=== PATIENT | male | born 1970 | race Caucasian/White ===

== ENCOUNTER 2019-07-16 11:38 | Emergency (ER) | payer BC, SELFPAY ==
[2019-07-16 11:39] VITALS: BP 158/87; PULSE 69; RESP 16; TEMP 37.1; O2SAT 98; BMI 25.8
--- NOTE | 2019-07-16 11:48 | CT_ITS ---
STUDY: CT ABDOMEN AND PELVIS WITHOUT CONTRAST REASON FOR EXAM: Male, 48 years old. Bilateral flank pain. RADIATION DOSAGE (If Supplied By Facility): CTDIvol = ( 10.56 ) mGy, DLP = ( 496.69 ) mGycm TECHNIQUE: Transaxial images were obtained from the dome of the diaphragm to the symphysis pubis without oral contrast, and without intravenous contrast. Sagittal and coronal images were reconstructed. Individualized dose optimization techniques were used for this CT. COMPARISON: None. FINDINGS: Lung bases: Minimal scarring. Heart: Unremarkable. Liver: Mild hepatic steatosis. Gallbladder/biliary ducts: Unremarkable. Pancreas: Unremarkable. Spleen: Unremarkable. Adrenal glands: Unremarkable. Kidneys/ureters/bladder: Right renal cyst (axial image 62). Mild bilateral extra renal pelvis. Nondilated ureters. Normal left renal parenchyma. Normal urinary bladder. Prostate: Punctate prostate calcifications. Large bowel/small bowel: Constipation. Appendix: Unremarkable (axial image 106). Gastroesophageal junction/stomach: Unremarkable. Retroperitoneum/lymph nodes: No intra-abdominal free air. No ascites. No pathologically enlarged lymph nodes. Vascular: Vascular calcifications. No aneurysm. Osseous structures: Mild degenerative findings. No acute process. Subcutaneous/soft tissues: Fat-containing hernia. Small left rectus femoris lipoma. No acute process. CT/Abdomen/Pelvis without Cont IMPRESSION: No acute intraabdominal/pelvic findings Constipation Electronically Signed: Elkin Laguna DO at 12:55 EST Tel , Service support ,
[2019-07-16 12:05] LABS: Absolute Lymphocyte Count 3.91 X10^3/uL (0.83-4.51); Absolute Neutrophil Count 6.1 X10^3/uL (2.0-7.7); Basophil# 0.05 X10^3/uL; Basophil% 0.4 % (0-1); Eosinophil# 0.48 X10^3/uL; Eosinophils% 4.2 % (0-5); Hematocrit 49.2 % (40-54); Hemoglobin 16.5 g/dL (13.0-16.5); Lymphocyte # 3.91 X10^3/ul (4.0); Lymphocyte % 34.5 % (19-41); Mean Corp Hgb Conc 33.5 g/dL (32-36); Mean Corpuscular Hgb 29.5 pg (27.0-32.0); Mean Platelet Vol. 10.7 fl (6.2-12.0); Monocyte# 0.81 X10^3/uL; Monocyte% 7.1 % (0-10); NRBC Flagged by Analyzer 0 % (0-5); Neutrophil # 6.06 X10^3/uL (2.7-7.7); Neutrophil % 53.5 % (47-70); POSITIVE MORPHOLOGY YES; Platelet Count 308 K/mm3 (150-450); RBC Distribution Width CV 13.3 % (11.6-14.6); RBC Distribution Width SD 43.4 fl (35.1-43.9); Red Blood Count 5.59 M/mm3 (4.6-6.2); White Blood Count 11.3 K/mm3 (4.4-11.0)
[2019-07-16 12:09] LABS: Differential Indicated SCAN CRITERIA MET
[2019-07-16 12:11] LABS: Bacteria 0 SEEN /hpf (None Seen); Mucous, Urine 0 SEEN /hpf (<or=2+); Squamous Epithelial Cells - UA 0 SEEN /hpf (0-5); White Blood Cells 0 SEEN /hpf (0-5)
[2019-07-16 12:13] LABS: Color, Urine Yellow (Yellow); Glucose, Dipstick Normal (Normal); Ketone-Dipstick Negative (Negative); Leukocyte Esterase-Dipstick Negative /ul (Negative); Nitrite-Dipstick Negative (Negative); Occult Blood-Urine 10 /ul (Negative); Protein-Dipstick Negative (Negative); Urine Bilirubin Dipstick Negative (Negative); Urine Clarity Clear (Clear); Urine Urobilinogen Normal (Normal)
[2019-07-16] MEDS: Ketorolac 30 MG/ML Syringe IV (12:17)
[2019-07-16 12:18] LABS: Anion Gap 4 (5-15); BUN 16 mg/dL (7-18); BUN/Creat Ratio 17.1 RATIO (10-20); Calcium,Total 9.8 mg/dL (8.5-10.1); Chloride 111 mmol/L (98-107); Creatinine, Serum 0.94 mg/dL (0.70-1.30); EST Glomerular Filtration Rate 91 mL/min (>60); Est Glom Filt Rate - Afr Amer 110 mL/min (>60); Estimated Creatinine Clearance 98.15 ml/min; Glucose 102 mg/dL (74-106); Potassium 4.5 mmol/L (3.5-5.1); Sodium Level 141 mmol/L (136-145)
[2019-07-16 12:18] LABS: Red Blood Cells-Urine 0-5 SEEN /hpf (0-5)
[2019-07-16] MEDS: 0.9% Normal Saline 1,000 ML 150 ML IV (12:18)
--- NOTE | 2019-07-16 13:11 | ED.DCSUM_ITS ---
- ER Visit Summary Date of Service: 07/16/19 Chief Complaint: [Back pain] History of Present Illness: The patient is a 48 M [resents to the emergency department complaint of pain in his back that started yesterday. Patient states initially started with some discomfort in his left testicle. Patient states that he woke up this morning and he had pain across his lower back. Patient is concerned that he might have a urinary tract infection because this is how his symptoms started when he was incarcerated about 5 years ago when he had a urinary tract infection. He denies any abdominal pain. He denies any pain rating down his legs. He denies saddle anesthesia. He denies weakness in extremities. He denies change in bowel bladder function. He denies dysuria, urgency, or frequency. He denies any trauma to his back. 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 Cranial nerves II through XII grossly intact. TMs clear. Mucous membranes moist. No adenopathy. Cardiovascular-regular rate and rhythm without murmur or ectopy Lungs-clear to auscultation, chest wall stable without crepitus or subcu emphysema Abdomen-normoactive bowel sounds, soft, nontender, no rebound or rigidity, no peritoneal signs. exam-patient has no tenderness over the testicles. Both testicles have a normal lie. Normal cremasteric reflex. Tenderness over the epididymides. No hernias palpated. Back exam-patient has no tenderness over the thoracic or lumbar spine. I really cannot reproduce his pain with palpation of his back. He has negative straight leg raises. Deep tendon reflexes are plus 2 out of 4 bilaterally. Extremities-intact ?4, normal range of motion, normal pulses, atraumatic] Test Results: [CBC with differential showed a white count of 11.3, hemoglobin 16, hematocrit 49, platelet 308. Chemistries unremarkable. Urinalysis 0-[address] flank showed constipation otherwise nothing acute.] Emergency Department Course and Treatment: [Patient had an IV line established and was given Toradol 30 mg IV.] Treatment Plan: [To be given a prescription for naproxen and Flexeril. Patient advised to follow-up with primary care physician 5 to 7 days.] Disposition: [Discharged home in stable condition.] Impression: [Back pain] This note was generated with [employer] dictation software. It may contain incorrect words, spelling, and punctuation that were not noted in review of the chart prior to signing ED Disposition - Plan for ED Patient: Referrals: SHERRY ALEX [Other]
--- NOTE | 2019-07-16 13:13 | ED.DEP ---
ED Disposition - Plan for ED Patient: Instructions: BACK AND NECK PAIN, General Prescriptions: cycloBENZAPRine HCl [Flexeril] 10 mg PO TID PRN #20 tab PRN Reason: Muscle Spasm Prescription Printed Naproxen [Naprosyn] 500 mg PO BID PRN #20 tab Prescription Printed Referrals: SHERRY ALEX [Other] - 3-5 Days
[2019-07-16 13:22] VITALS: BP 129/77; PULSE 62; RESP 15; O2SAT 98
== END 2019-07-16 13:23 | disposition home or self-care (01) ==
LOC: ED 12:57
PROVIDERS: Emergency Provider Emergency Medicine
DX: M54.5 Low back pain (principal); K59.00 Constipation, unspecified; Z87.440 Personal history of urinary (tract) infections; Z72.0 Tobacco use
CPT/HCPCS: 74176; 80048; 81001; 85025; 96361; 96374; 99283; J7030; A4216

== ENCOUNTER 2020-10-10 09:32 | Emergency (ER) | payer OTHER, SELFPAY ==
[2020-10-10 09:37] VITALS: BP 149/92; PULSE 65; RESP 17; TEMP 36.6; O2SAT 95; BMI 30.2
--- NOTE | 2020-10-10 10:07 | CT_ITS ---
STUDY: CT BRAIN WITHOUT CONTRAST REASON FOR EXAM: Male, 50 years old. Headache RADIATION DOSAGE (If Supplied By Facility): CTDIvol = ( 44.99 ) mGy, DLP = ( 779.24 ) mGycm TECHNIQUE: Transaxial CT imaging of the brain was performed without administration of intravenous contrast material. Individualized dose optimization techniques were used for this CT. COMPARISON: No relevant priors. FINDINGS: Normal soft tissue structures. Normal calvarium. Normal size ventricles and extra-axial spaces for the patient''s age. There are mild areas of decreased attenuation within the white matter tracts of the supratentorial brain which may reflect mild microvascular disease changes. Normal basal ganglia and thalami. Normal brainstem. Normal cerebellum. There is no intracranial hemorrhage. There are no findings of an acute ischemic infarction. Normal visualized paranasal sinuses. CT/Brain/Head without Contrast IMPRESSION: No acute intracranial process. Electronically Signed: Martín Tee MD at 11:30 EDT Tel , Service support ,
[2020-10-10 10:36] LABS: Absolute Neutrophil Count 4.7 X10^3/uL (2.0-7.7); Basophil# 0.06 X10^3/uL; Basophil% 0.6 % (0-1); Eosinophils% 13.4 % (0-5); Hematocrit 47.2 % (40-54); Hemoglobin 15.6 g/dL (13.0-16.5); Lymphocyte % 31.9 % (19-41); Mean Corp Hgb Conc 33.1 g/dL (32-36); Mean Corpuscular Hgb 29.9 pg (27.0-32.0); Mean Corpuscular Volume 90.4 fL (80-94); Mean Platelet Vol. 11.1 fl (6.2-12.0); Monocyte# 0.59 X10^3/uL; Monocyte% 6.1 % (0-10); NRBC Flagged by Analyzer 0 % (0-5); Neutrophil # 4.65 X10^3/uL (2.7-7.7); Neutrophil % 47.8 % (47-70); POSITIVE MORPHOLOGY YES; Platelet Count 301 K/mm3 (150-450); RBC Distribution Width CV 13.1 % (11.6-14.6); RBC Distribution Width SD 43.2 fl (35.1-43.9); Red Blood Count 5.22 M/mm3 (4.6-6.2); White Blood Count 9.7 K/mm3 (4.4-11.0)
[2020-10-10 10:41] LABS: Anion Gap 3 (5-15); BUN 16 mg/dL (7-18); BUN/Creat Ratio 18.5 RATIO (10-20); Calcium,Total 9.2 mg/dL (8.5-10.1); Chloride 111 mmol/L (98-107); Creatinine, Serum 0.87 mg/dL (0.70-1.30); EST Glomerular Filtration Rate 99 mL/min (>60); Est Glom Filt Rate - Afr Amer 119 mL/min (>60); Estimated Creatinine Clearance 103.72 ml/min; Glucose 102 mg/dL (74-106); Potassium 5.7 mmol/L (3.5-5.1); Sodium Level 139 mmol/L (136-145)
[2020-10-10 10:43] LABS: Differential Indicated SCAN CRITERIA MET
[2020-10-10 10:53] LABS: Differential Comment SCANNED
[2020-10-10] MEDS: 0.9% Normal Saline 1,000 ML 1000 ML IV (11:04)
[2020-10-10] MEDS: Ketorolac 15 MG/ML Vial IV (11:04)
[2020-10-10] MEDS: Orphenadrine 60 MG/2 ML Ampul IV (11:04)
--- NOTE | 2020-10-10 11:06 | ED.DCSUM_ITS ---
- ER Visit Summary Date of Service: 10/10/20 Chief Complaint: Headache History of Present Illness: The patient is a [address] Hutchinson. He reports that he has an occipital headache that began 6 days ago. Is gradually gotten worse. It is a sharp, throbbing pain. Reports that he had a similar headache approximately 4 years ago. Is 10 out of 10 at worst and 5-10 currently. Is worsened by eating. She relieved by hot water. He is taken Imitrex without relief. He denies any photophobia. No change in his vision. No nausea or vomiting. No numbness or weakness. Review of systems is otherwise negative. Physical Examination: Vitals: Stable. Afebrile. General: Well-nourished and well-developed. Head: Normocephalic atraumatic. Neck: Supple, no lymphadenopathy. No JVD. Nontender. Cardiovascular: Regular rate and rhythm. No murmurs. Respiratory: No respiratory distress. Clear to auscultation bilaterally. Abdominal: Soft, nontender, nondistended, normal bowel sounds. No guarding, rebound, or peritoneal signs. Back: Nontender. Extremities: Nontender, no edema. Skin: Normal color, no rash. Neurologic: Alert and oriented ?3. Cranial nerves II through XII are intact. Normal strength and sensation. Psych: Normal affect. Test Results: CBC shows an eosinophils of 13. Chem-7 shows potassium of 5.7 (moderate hemolysis), chloride of 111. Clinical Impression(s) from Imaging Studies Brain CT 10/10/20 10:07 IMPRESSION: No acute intracranial process. Electronically Signed: Martín Tee MD at 11:30 EDT Tel , Service support , Emergency Department Course and Treatment: Patient was given a dose of Toradol and Norflex IV. He is resting more comfortably. Treatment Plan: Given the location of the patient's pain and the fact that it is worsened when he moves his head to eat I suspect that this is actually a tension headache. Will be discharged with instructions to push fluids. Use moist heat to the area. Alternate Tylenol ibuprofen. Follow-up with his primary care physician in 3 to 5 days if not improving. Return to the emergency department for any worsening symptoms. Disposition: To home in improved and stable condition. Impression: 1. Cephalgia. This note was generated with [employer] dictation software. It may contain incorrect words, spelling, and punctuation that were not noted in review of the chart prior to signing ED Disposition - Plan for ED Patient: Instructions: ED Headache, Tension Referrals: Sterling Espinoza [Other] - 3-5 Days if not improving
[2020-10-10 11:40] VITALS: BP 162/98; PULSE 62; RESP 16; O2SAT 97
[2020-10-10 12:16] VITALS: PULSE 57; RESP 16; O2SAT 99
== END 2020-10-10 12:17 | disposition home or self-care (01) ==
PROVIDERS: Emergency Provider Emergency Medicine
DX: R51.9 Headache, unspecified (principal); I10 Essential (primary) hypertension; J44.9 Chronic obstructive pulmonary disease, unspecified; Z79.899 Other long term (current) drug therapy; Z86.73 Personal history of transient ischemic attack (TIA), and cerebral infarction without residual deficits; Z87.891 Personal history of nicotine dependence
CPT/HCPCS: 70450; 80048; 85025; 96361; 96374; 96375; 99283; J7030; A4216